=== PATIENT | male | born 1940 | race Caucasian/White ===

== ENCOUNTER 2017-10-19 14:34 | Outpatient (CLI) | payer MEDICARE | END 2017-10-19 14:35 | disposition home or self-care (01) | LOC: CTENTCT 14:34 | PROVIDERS: ATTEND Specialist | DX: J34.89 Other specified disorders of nose and nasal sinuses (principal) | CPT/HCPCS: 70486 ==

== ENCOUNTER 2021-09-12 09:42 | Outpatient (CLI) | payer MEDICARE ==
[2021-09-12 12:54] LABS: Hemoglobin 10.7 g/dL (13.5-17.5); Mean Corpuscular HGB CONC 30.5 g/dL (32.0-36.0); Mean Corpuscular Hemoglobin 26.6 pg (27.0-33.0); Mean Corpuscular Volume 87.1 fl (81.2-95.1); Mean Platelet Volume 11.7 fl (7.4-10.4); Platelet Count 340 10x3/uL (150-450); RBC Distribution Width 21.9 % (11.5-14.5); Red Blood Cell (RBC) Count 4.03 10x6/uL (4.32-5.72); White Blood Cell (WBC) Count 12.5 10x3/uL (3.5-10.5)
[2021-09-12 12:58] LABS: INR-International Normal Ratio 1.1; Prothrombin Time 11.7 sec (9.5-12.1)
[2021-09-12 13:14] LABS: ALT (SGPT) 16 U/L (8-55); AST (SGOT) 28 U/L (5-34); Albumin 4.5 g/dL (3.4-4.8); Alkaline Phosphatase 75 U/L (40-110); Anion Gap 13 mmol/L (10-20); BUN (Urea Nitrogen) 22 mg/dL (8.4-25.7); Bilirubin, Total 0.5 mg/dL (0.2-1.2); Calc. Creatinine Clearance 0 mL/min (70-130); Calcium 9.2 mg/dL (7.8-10.44); Carbon Dioxide 21 mmol/L (23-31); Chloride 110 mmol/L (98-107); Globulin 2.8 g/dL (2.4-3.5); Glucose 86 mg/dL (83-110); Potassium 5.1 mmol/L (3.5-5.1); Protein, Total 7.3 g/dL (5.8-8.1); Sodium 139 mmol/L (136-145)
[2021-09-13 00:16] LABS: SARS-CoV-2 PCR by NAA Not Detected (NotDetected)
== END 2021-09-12 09:43 | disposition home or self-care (01) ==
LOC: LABBT 09:42
PROVIDERS: ATTEND Internal Medicine Cardiovascular Disease
DX: Z01.812 Encounter for preprocedural laboratory examination (principal); Z20.822 Contact with and (suspected) exposure to COVID-19
CPT/HCPCS: 80053; 85027; 85610; 86850; 86900; 86901; 86920; U0003; U0005

== ENCOUNTER 2021-09-12 11:00 | Inpatient (IN) | payer MEDICARE ==
[2021-09-12 12:54] LABS: Hemoglobin 10.7 g/dL (13.5-17.5); Mean Corpuscular HGB CONC 30.5 g/dL (32.0-36.0); Mean Corpuscular Hemoglobin 26.6 pg (27.0-33.0); Mean Corpuscular Volume 87.1 fl (81.2-95.1); Mean Platelet Volume 11.7 fl (7.4-10.4); Platelet Count 340 10x3/uL (150-450); RBC Distribution Width 21.9 % (11.5-14.5); Red Blood Cell (RBC) Count 4.03 10x6/uL (4.32-5.72); White Blood Cell (WBC) Count 12.5 10x3/uL (3.5-10.5)
[2021-09-12 12:58] LABS: INR-International Normal Ratio 1.1; Prothrombin Time 11.7 sec (9.5-12.1)
[2021-09-12 13:14] LABS: ALT (SGPT) 16 U/L (8-55); AST (SGOT) 28 U/L (5-34); Albumin 4.5 g/dL (3.4-4.8); Alkaline Phosphatase 75 U/L (40-110); Anion Gap 13 mmol/L (10-20); BUN (Urea Nitrogen) 22 mg/dL (8.4-25.7); Bilirubin, Total 0.5 mg/dL (0.2-1.2); Calc. Creatinine Clearance 0 mL/min (70-130); Calcium 9.2 mg/dL (7.8-10.44); Carbon Dioxide 21 mmol/L (23-31); Chloride 110 mmol/L (98-107); Globulin 2.8 g/dL (2.4-3.5); Glucose 86 mg/dL (83-110); Potassium 5.1 mmol/L (3.5-5.1); Protein, Total 7.3 g/dL (5.8-8.1); Sodium 139 mmol/L (136-145)
[2021-09-13 00:16] LABS: SARS-CoV-2 PCR by NAA Not Detected (NotDetected)
[2021-09-13 14:49] VITALS: BMI 26.6
[2021-09-15] MEDS ORDERED: Heparin 10,000 UNITS/ 10 ML VIAL ONE (08:16)
[2021-09-15] MEDS ORDERED: Protamine Sulfate 50 MG/5 ML VIAL ONE (08:16)
[2021-09-15] MEDS ORDERED: Fentanyl 100 MCG/2 ML VIAL ONE (09:01)
[2021-09-15] MEDS ORDERED: PROPOFOL 200 MG/20 ML VIAL ONE (09:16)
[2021-09-15] MEDS ORDERED: Ketorolac Tromethamine 30 MG/ML VIAL ONE (09:16)
[2021-09-15] MEDS ORDERED: Ondansetron PF 4 MG/2 ML Vial ONE (09:16)
[2021-09-15] MEDS ORDERED: Lidocaine 1% PF 5 ML VIAL ONE (09:16)
[2021-09-15] MEDS ORDERED: Rocuronium Bromide 10 MG/ML (10ML VIAL) ONE (09:16)
[2021-09-15] MEDS ORDERED: Dexamethasone 20 MG/5 ML VIAL ONE (09:16)
[2021-09-15] MEDS ORDERED: Glycopyrrolate 0.2 MG/ML 5 ML SYRINGE ONE (09:16)
[2021-09-15] MEDS ORDERED: CEFAZOLIN 1 GM VIAL ONE (10:08)
== END 2021-09-15 15:12 | disposition home or self-care (01) | DRG 274 ==
LOC: SURG A 09-15 07:10
PROVIDERS: ADMIT Internal Medicine Cardiovascular Disease; ATTEND Internal Medicine Cardiovascular Disease
PROC: 02L73DK Occlusion of Left Atrial Appendage with Intraluminal Device, Percutaneous Approach (ICD-10-PCS; principal; 2021-09-15)
PROC: B24BZZ4 Ultrasonography of Heart with Aorta, Transesophageal (ICD-10-PCS; 2021-09-15)
DX: I48.0 Paroxysmal atrial fibrillation (principal); I50.22 Chronic systolic (congestive) heart failure; Z00.6 Encounter for examination for normal comparison and control in clinical research program; Z20.822 Contact with and (suspected) exposure to COVID-19; I25.5 Ischemic cardiomyopathy; E03.9 Hypothyroidism, unspecified; E78.5 Hyperlipidemia, unspecified; R29.6 Repeated falls; Z96.651 Presence of right artificial knee joint; I11.0 Hypertensive heart disease with heart failure; J45.909 Unspecified asthma, uncomplicated; I25.10 Atherosclerotic heart disease of native coronary artery without angina pectoris; Z87.19 Personal history of other diseases of the digestive system; Z95.810 Presence of automatic (implantable) cardiac defibrillator; Z95.1 Presence of aortocoronary bypass graft; Z90.81 Acquired absence of spleen; Z98.42 Cataract extraction status, left eye; Z98.41 Cataract extraction status, right eye; I25.2 Old myocardial infarction; Z82.49 Family history of ischemic heart disease and other diseases of the circulatory system; Z87.891 Personal history of nicotine dependence; Z79.899 Other long term (current) drug therapy; Z79.890 Hormone replacement therapy; Z79.01 Long term (current) use of anticoagulants; Z88.1 Allergy status to other antibiotic agents; Z88.5 Allergy status to narcotic agent; Z88.8 Allergy status to other drugs, medicaments and biological substances; Z79.82 Long term (current) use of aspirin; Z91.81 History of falling; Z95.5 Presence of coronary angioplasty implant and graft
CPT/HCPCS: 33340; 36430; 80053; 85027; 85347; 85610; 86850; 86900; 86901; 93312; 93662; C1759; C1776; J0690; J1100; J1644; J1885; J2405; J2704; J2720; J3010; U0003; U0005

== ENCOUNTER 2021-10-27 10:30 | Outpatient (CLI) | payer MEDICARE ==
[2021-10-27 13:06] LABS: Mean Corpuscular Hemoglobin 30.4 pg (27.0-33.0); Mean Corpuscular Volume 94.9 fl (81.2-95.1); Mean Platelet Volume 11.5 fl (7.4-10.4); Platelet Count 328 10x3/uL (150-450); Red Blood Cell (RBC) Count 4.28 10x6/uL (4.32-5.72); White Blood Cell (WBC) Count 10.3 10x3/uL (3.5-10.5)
[2021-10-27 13:09] LABS: INR-International Normal Ratio 1.1; Prothrombin Time 11.9 sec (9.5-12.1)
[2021-10-27 13:42] LABS: Anion Gap 15 mmol/L (10-20); BUN (Urea Nitrogen) 23 mg/dL (8.4-25.7); Calc. Creatinine Clearance 0 mL/min (70-130); Calcium 9.5 mg/dL (7.8-10.44); Carbon Dioxide 18 mmol/L (23-31); Chloride 112 mmol/L (98-107); Glucose 76 mg/dL (83-110); Potassium 4.7 mmol/L (3.5-5.1); Sodium 140 mmol/L (136-145)
[2021-10-28 09:12] LABS: SARS-CoV-2 PCR by NAA Not Detected (NotDetected)
== END 2021-10-27 10:31 | disposition home or self-care (01) ==
LOC: LABBT 10:30
PROVIDERS: ATTEND Internal Medicine Cardiovascular Disease
DX: Z01.812 Encounter for preprocedural laboratory examination (principal); I48.0 Paroxysmal atrial fibrillation; Z87.19 Personal history of other diseases of the digestive system; Z20.822 Contact with and (suspected) exposure to COVID-19
CPT/HCPCS: 80048; 85027; 85610; U0003; U0005

== ENCOUNTER 2021-11-01 06:49 | Day surgery (SDC) | payer MEDICARE ==
[2021-10-20 11:24] VITALS: BMI 26.6
[2021-11-01] MEDS ORDERED: PROPOFOL 200 MG/20 ML VIAL ONE (07:47)
== END 2021-11-01 09:25 | disposition home or self-care (01) ==
LOC: SDC 06:49
PROVIDERS: ATTEND Internal Medicine Cardiovascular Disease
PROC: B246ZZ4 Ultrasonography of Right and Left Heart, Transesophageal (ICD-10-PCS; principal; 2021-11-01)
DX: I48.0 Paroxysmal atrial fibrillation (principal); I34.0 Nonrheumatic mitral (valve) insufficiency; I11.0 Hypertensive heart disease with heart failure; I50.22 Chronic systolic (congestive) heart failure; I25.5 Ischemic cardiomyopathy; E03.9 Hypothyroidism, unspecified; E78.5 Hyperlipidemia, unspecified; I25.10 Atherosclerotic heart disease of native coronary artery without angina pectoris; Z87.891 Personal history of nicotine dependence; Z79.01 Long term (current) use of anticoagulants; Z79.899 Other long term (current) drug therapy; Z88.1 Allergy status to other antibiotic agents; Z88.5 Allergy status to narcotic agent; Z88.8 Allergy status to other drugs, medicaments and biological substances; Z95.1 Presence of aortocoronary bypass graft; Z90.49 Acquired absence of other specified parts of digestive tract; Z95.810 Presence of automatic (implantable) cardiac defibrillator; Z95.818 Presence of other cardiac implants and grafts
CPT/HCPCS: 93312; J2704

== ENCOUNTER 2023-09-20 07:06 | Day surgery (SDC) | payer MEDICARE ==
[2023-09-17 09:54] VITALS: BMI 23.3
[2023-09-20 07:57] LABS: #Basophils 0.2 thou/uL (0.0-0.2); #Eosinphils 0.9 thou/uL (0.0-0.7); #Monocytes 1.6 thou/uL (0.11-0.59); #Neutrophils 7.6 thou/uL (1.40-6.50); %Basophils 1.2 % (0.0-1.0); %Eosinophils 7.4 % (0.0-10.0); %Monocytes 12.3 % (0.0-10.0); %Neutrophils 59.8 % (42.0-75.0); Hematocrit 37.6 % (42.0-52.0); Hemoglobin 13.2 g/dL (14.0-18.0); Mean Corpuscular HGB CONC 35.1 g/dL (32.0-36.0); Mean Corpuscular Hemoglobin 36.9 pg (27.0-31.0); Mean Platelet Volume 10.1 fL (7.4-10.4); Platelet Count 293 10x3/uL (130-400); RBC Distribution Width 14.5 % (11.5-14.5); Red Blood Cell (RBC) Count 3.58 mill/uL (4.70-6.10); White Blood Cell (WBC) Count 12.7 10x3/uL (4.8-10.8)
[2023-09-20 08:18] LABS: Anion Gap 11 mmol/L (10-20); BUN (Urea Nitrogen) 19 mg/dL (8.4-25.7); Calc. Creatinine Clearance 42 mL/min (70-130); Calcium 9.2 mg/dL (7.8-10.44); Carbon Dioxide 19 mmol/L (23-31); Chloride 110 mmol/L (98-107); Estimated GFR 61; Glucose 90 mg/dL (83-110); Sodium 136 mmol/L (136-145)
[2023-09-20 08:27] LABS: INR-International Normal Ratio 1.1; PTT 34.3 sec (22.9-36.1); Prothrombin Time 14.7 sec (12.0-14.7)
[2023-09-20] MEDS ORDERED: PROPOFOL 200 MG/20 ML VIAL ONE (09:22)
== END 2023-09-20 10:22 | disposition home or self-care (01) ==
LOC: SDC 07:06
PROVIDERS: ATTEND Internal Medicine Cardiovascular Disease
PROC: B246ZZ4 Ultrasonography of Right and Left Heart, Transesophageal (ICD-10-PCS; principal; 2023-09-20)
DX: I48.0 Paroxysmal atrial fibrillation (principal); I11.0 Hypertensive heart disease with heart failure; I50.22 Chronic systolic (congestive) heart failure; I25.5 Ischemic cardiomyopathy; I25.810 Atherosclerosis of coronary artery bypass graft(s) without angina pectoris; E03.9 Hypothyroidism, unspecified; E78.5 Hyperlipidemia, unspecified; Z88.5 Allergy status to narcotic agent; Z88.8 Allergy status to other drugs, medicaments and biological substances; Z95.0 Presence of cardiac pacemaker; Z90.89 Acquired absence of other organs; Z96.659 Presence of unspecified artificial knee joint; Z87.891 Personal history of nicotine dependence; Z79.890 Hormone replacement therapy; Z79.899 Other long term (current) drug therapy
CPT/HCPCS: 36415; 80048; 85025; 85610; 85730; 93312; J2704

== ENCOUNTER 2024-03-30 20:55 | Inpatient (IN) | payer MEDICARE ==
[2024-03-30] MEDS ORDERED: Electrolyte Replacement Protocol 1 EACH IVPB SCH (22:23)
[2024-03-30] MEDS ORDERED: Acetaminophen 325 MG (10.15 ML) UDCUP PO PRN (22:23)
[2024-03-30] MEDS ORDERED: Ondansetron ODT 4 MG TAB PO PRN (22:24)
[2024-03-30] MEDS: Dextrose 5%-Lactated Ringers 1,000 ML IV SCH (22:42)
[2024-03-30] MEDS: Piperacillin/Tazobactam 4.5 GM in Sodium Chloride 0.9% 100 ML IVPB SCH (22:44)
[2024-03-30 22:53] LABS: Hematocrit 36.2 % (42.0-52.0); Hemoglobin 12.3 g/dL (14.0-18.0); Mean Corpuscular Hemoglobin 34.2 pg (27.0-31.0); Mean Corpuscular Volume 100.6 fL (78.0-98.0); Platelet Count 272 10x3/uL (130-400); RBC Distribution Width 14.5 % (11.5-14.5)
[2024-03-30 23:45] LABS: Band 11 % (5-11); Burr Cells MODERATE= 6-15 cells HPF (0-1); Eosinophils 1 % (0-10); Large Platelets 4.5 % (0-5); Lymphocytes 5 % (21-51); Monocytes 2 % (0-10); Neutrophil 81 % (42-75); Nucleated RBC (Manual Ct) 9 % (0); Platelet Adequacy Comment Platelets Normal; Smudge Cells 4.5 %
[2024-03-31 00:40] LABS: Lactic Acid 2.3 mmol/L (0.5-2.2)
[2024-03-31 01:50] LABS: Anion Gap 22 mmol/L (10-20); BUN (Urea Nitrogen) 42 mg/dL (8.4-25.7); Calc. Creatinine Clearance 33 mL/min (70-130); Calcium 8.9 mg/dL (7.8-10.44); Carbon Dioxide 10 mmol/L (23-31); Chloride 109 mmol/L (98-107); Estimated GFR 39; Glucose 63 mg/dL (83-110); Potassium 3.9 mmol/L (3.5-5.1); Sodium 137 mmol/L (136-145)
[2024-03-31] MEDS: Piperacillin/Tazobactam 4.5 GM in Sodium Chloride 0.9% 100 ML IVPB SCH (03:55)
[2024-03-31] MEDS ORDERED: Glucagon 1 MG/ML KIT IM PRN (04:54)
[2024-03-31] MEDS ORDERED: Dextrose 50% Abboject 50 ML SYRINGE SLOW IVP PRN (04:54)
[2024-03-31] MEDS ORDERED: Dextrose 5% in Water 1,000 ML IV PRN (04:54)
[2024-03-31 04:56] LABS: Phosphorus 3.4 mg/dL (2.3-4.7)
[2024-03-31] MEDS: Ondansetron PF 4 MG/2 ML Vial IVP PRN (08:21)
[2024-03-31] MEDS: Pantoprazole 40 MG VIAL IVP SCH (08:21)
[2024-03-31 08:33] LABS: Hemoglobin 13.7 g/dL (14.0-18.0); Mean Corpuscular HGB CONC 32.6 g/dL (32.0-36.0); Mean Corpuscular Hemoglobin 33.3 pg (27.0-31.0); Mean Corpuscular Volume 102.2 fL (78.0-98.0); Mean Platelet Volume 11.2 fL (7.4-10.4); Platelet Count 230 10x3/uL (130-400); RBC Distribution Width 14.6 % (11.5-14.5); Red Blood Cell (RBC) Count 4.11 mill/uL (4.70-6.10)
[2024-03-31] MEDS ORDERED: fentaNYL PF 100 MCG/2 ML SYRINGE IVP PRN (09:13)
[2024-03-31 09:58] LABS: Anisocytosis MODERATE=16-30 cells HPF (0-5); Band 15 % (5-11); Large Platelets 2.8 % (0-5); Lymphocytes 3 % (21-51); Monocytes 7 % (0-10); Neutrophil 73 % (42-75); Nucleated RBC (Manual Ct) 8 % (0); Platelet Adequacy Comment Platelets Normal; Poikilocytosis SLIGHT = 6-15 cells HPF (0-5); Polychromasia SLIGHT = 2-3 cells HPF (0-2); Reflex for Review?? YES; Schistocytes SLIGHT = 2-5 cells HPF (0-1); Target Cells SLIGHT = 2-5 cells HPF (0-1)
[2024-03-31] MEDS: fentaNYL 50 mcg/mL 1 mL Vial SLOW IVP PRN (10:10)
[2024-03-31] MEDS: Piperacillin/Tazobactam 3.375 GM in Sodium Chloride 0.9% 100 ML IVPB SCH (10:36)
[2024-03-31] MEDS: Acetaminophen 500 MG TAB PO SCH (13:44)
[2024-03-31] MEDS: Sucralfate 1 GM TAB PO SCH (13:44)
[2024-03-31] MEDS: Carvedilol 3.125 MG TAB PO SCH (16:06)
[2024-03-31] MEDS: Dronedarone HCl 400 MG TAB PO SCH (16:06)
[2024-03-31] MEDS: Escitalopram Oxalate 10 mg Tablet PO SCH (16:14)
[2024-03-31] MEDS: Heparin 5,000 UNITS/ML VIAL SC SCH (16:35)
[2024-03-31] MEDS: Furosemide 40 MG (4 mL) VIAL SLOW IVP SCH ×2 (16:35→19:54)
[2024-04-01 06:28] LABS: ALT (SGPT) 27 U/L (8-55); AST (SGOT) 31 U/L (5-34); Albumin 2.1 g/dL (3.4-4.8); Alkaline Phosphatase 45 U/L (40-110); Anion Gap 18 mmol/L (10-20); BUN (Urea Nitrogen) 44 mg/dL (8.4-25.7); Bilirubin, Total 1.4 mg/dL (0.2-1.2); Calc. Creatinine Clearance 35 mL/min (70-130); Calcium 8.8 mg/dL (7.8-10.44); Carbon Dioxide 21 mmol/L (23-31); Chloride 107 mmol/L (98-107); Estimated GFR 46; Globulin 3.3 g/dL (2.4-3.5); Glucose 113 mg/dL (83-110); Potassium 2.5 mmol/L (3.5-5.1); Protein, Total 5.4 g/dL (5.8-8.1); Sodium 143 mmol/L (136-145)
[2024-04-01 06:33] LABS: Band 25 % (5-11); Burr Cells MODERATE= 6-15 cells HPF (0-1); Large Platelets 2.6 % (0-5); Lymphocytes 2 % (21-51); Monocytes 7 % (0-10); Neutrophil 67 % (42-75); Nucleated RBC (Manual Ct) 18 % (0); Platelet Adequacy Comment Platelets Normal; Poikilocytosis MODERATE=16-30 cells HPF (0-5); Polychromasia SLIGHT = 2-3 cells HPF (0-2)
[2024-04-01] MEDS: Potassium Chloride 20 MEQ in Premix 1 BAG IVPB SCH (06:46)
[2024-04-01 06:47] LABS: Hemoglobin 12.2 g/dL (14.0-18.0); Mean Corpuscular HGB CONC 35.9 g/dL (32.0-36.0); Mean Corpuscular Hemoglobin 34.2 pg (27.0-31.0); Mean Corpuscular Volume 95.2 fL (78.0-98.0); Mean Platelet Volume 11.7 fL (7.4-10.4); Platelet Count 265 10x3/uL (130-400); RBC Distribution Width 14.2 % (11.5-14.5); Red Blood Cell (RBC) Count 3.57 mill/uL (4.70-6.10)
[2024-04-01] MEDS ORDERED: Lidocaine 1% PF 5 ML VIAL ONE (09:54)
[2024-04-01] MEDS ORDERED: Sodium Bicarbonate 2.5 MEQ/5 ML SDV ONE (10:21)
[2024-04-01] MEDS ORDERED: MD-Gastroview 120 ML BOT ONE (11:11)
[2024-04-01] MEDS ORDERED: Etomidate 40 MG (20 mL) VIAL ONE (11:48)
[2024-04-01] MEDS ORDERED: fentaNYL PF 100 MCG/2 ML SYRINGE ONE (11:53)
[2024-04-01] MEDS ORDERED: GASTROGRAFIN 30 ML BOT ONE (12:30)
[2024-04-01] MEDS: Pantoprazole 40 MG VIAL IVP SCH (13:24)
[2024-04-01] MEDS ORDERED: Ondansetron PF 4 MG/2 ML Vial ONE (13:34)
[2024-04-01] MEDS ORDERED: PHENYLEPHRINE-NS 100 MCG/ML 10 ML SYRINGE ONE (13:34)
[2024-04-01] MEDS ORDERED: Rocuronium Bromide 10 MG/ML (10ML VIAL) ONE (13:34)
[2024-04-01] MEDS ORDERED: Dexamethasone 20 MG/5 ML VIAL ONE (13:34)
[2024-04-01] MEDS ORDERED: SUCCINYLCHOLINE/SOD CL,ISO/PF 200 MG/10 ML SYRINGE FS ONE (13:34)
[2024-04-01] MEDS ORDERED: Vasopressin 20 UNITS/ML VIAL ONE (13:53)
[2024-04-01] MEDS: Furosemide 40 MG (4 mL) VIAL SLOW IVP SCH (14:50)
[2024-04-01 16:14] LABS: Actual Bicarbonate (HCO3a) 18.6 mEq/L (22-28); Base Excess (BEa) -6.5 mEq/L (-2.0 to +3.0); Calcium, Ionized (arterial) 1.14 mmol/L (1.12-1.30); Carboxyhemoglobin (COHb) 0.8 gm% (0.0-3.0); Hematocrit-ABG 39 % (42.0-52.0); Hemoglobin (Hb) 13.3 g/dL (14.0-18.0); O2 Tension (PaO2), arterial 145.3 mmHg (> 60.0); Potassium - ABG Lab 2.67 mmol/L (3.70-5.30); pH, Arterial 7.332 (7.35-7.45)
[2024-04-01 16:15] LABS: Puncture Site Arterial Line
[2024-04-01] MEDS: Magnesium 2 GM/50 ML(in water) 2 GM in Premix 1 BAG IVPB SCH (16:53)
[2024-04-01] MEDS ORDERED: Fentanyl BOLUS 250 ML IVPB PRN (17:00)
[2024-04-01] MEDS ORDERED: Morphine 2 MG/ML VIAL SLOW IVP PRN (17:00)
[2024-04-01] MEDS ORDERED: Propofol 1,000 MG/100 ML VIAL IV PRN (17:00)
[2024-04-01] MEDS ORDERED: DISCONTINUE PREVIOUS NARCOTIC PAIN MEDICATIONS AND BENZODIAZEPINES FS SCH (17:00)
[2024-04-01] MEDS ORDERED: Propofol BOLUS 1,000 MG/100 ML VIAL IV PRN (17:00)
[2024-04-01] MEDS ORDERED: NOREPINEPHRINE 8 MG/250 ML-D5W 250 ML IVPB SCH (17:45)
[2024-04-01 23:44] LABS: Hematocrit 37.5 % (42.0-52.0); Hemoglobin 13.2 g/dL (14.0-18.0); Mean Corpuscular HGB CONC 35.2 g/dL (32.0-36.0); Mean Corpuscular Hemoglobin 34.1 pg (27.0-31.0); Mean Corpuscular Volume 96.9 fL (78.0-98.0); Mean Platelet Volume 11.5 fL (7.4-10.4); Platelet Count 268 10x3/uL (130-400); RBC Distribution Width 14.3 % (11.5-14.5); Red Blood Cell (RBC) Count 3.87 mill/uL (4.70-6.10)
[2024-04-02 00:09] LABS: Band 15 % (5-11); Burr Cells SLIGHT = 2-5 cells HPF (0-1); Large Platelets 2.8 % (0-5); Lymphocytes 2 % (21-51); Metamyelocyte 1 % (0-0); Monocytes 3 % (0-10); Nucleated RBC (Manual Ct) 9 % (0); Platelet Adequacy Comment Platelets Normal; Polychromasia SLIGHT = 2-3 cells HPF (0-2); Smudge Cells 3.8 %; Target Cells SLIGHT = 2-5 cells HPF (0-1)
[2024-04-02 00:10] LABS: Lactic Acid 2.2 mmol/L (0.5-2.2)
[2024-04-02 00:11] LABS: Neutrophil 79 % (42-75)
[2024-04-02 00:13] LABS: ALT (SGPT) 27 U/L (8-55); AST (SGOT) 34 U/L (5-34); Albumin 1.9 g/dL (3.4-4.8); Alkaline Phosphatase 49 U/L (40-110); Anion Gap 17 mmol/L (10-20); BUN (Urea Nitrogen) 51 mg/dL (8.4-25.7); Bilirubin, Total 1.2 mg/dL (0.2-1.2); Calc. Creatinine Clearance 35 mL/min (70-130); Calcium 8.6 mg/dL (7.8-10.44); Carbon Dioxide 15 mmol/L (23-31); Chloride 116 mmol/L (98-107); Estimated GFR 46; Globulin 3.4 g/dL (2.4-3.5); Glucose 162 mg/dL (83-110); Magnesium 2.7 mg/dL (1.6-2.6); Potassium 3.1 mmol/L (3.5-5.1); Protein, Total 5.3 g/dL (5.8-8.1); Sodium 145 mmol/L (136-145)
[2024-04-02 01:15] LABS: Actual Bicarbonate (HCO3a) 18.4 mEq/L (22-28); Base Excess (BEa) -5.7 mEq/L (-2.0 to +3.0); CO2 Tension 31.9 mmHg (35.0-45.0); Calcium, Ionized (arterial) 1.19 mmol/L (1.12-1.30); Carboxyhemoglobin (COHb) 0.6 gm% (0.0-3.0); Hematocrit-ABG 41 % (42.0-52.0); Hemoglobin (Hb) 13.8 g/dL (14.0-18.0); O2 Tension (PaO2), arterial 106.9 mmHg (> 60.0); Potassium - ABG Lab 3.12 mmol/L (3.70-5.30); pH, Arterial 7.378 (7.35-7.45)
[2024-04-02 01:16] LABS: Puncture Site Arterial Line
[2024-04-02 01:21] LABS: ALV-art Gradient 281.025 mmHg (0-20)
[2024-04-02 03:22] LABS: Hematocrit 36.1 % (42.0-52.0); Hemoglobin 12.7 g/dL (14.0-18.0); Mean Corpuscular HGB CONC 35.2 g/dL (32.0-36.0); Mean Corpuscular Volume 96.8 fL (78.0-98.0); Mean Platelet Volume 11.6 fL (7.4-10.4); Platelet Count 253 10x3/uL (130-400); RBC Distribution Width 14.4 % (11.5-14.5); Red Blood Cell (RBC) Count 3.73 mill/uL (4.70-6.10)
[2024-04-02] MEDS: Potassium Chloride 20 MEQ in Premix 1 BAG IVPB SCH ×2 (03:26→12:13)
[2024-04-02] MEDS: Albumin 25% 25 GM (100 mL) BOT IVPB SCH (03:39)
[2024-04-02] MEDS: Sodium Bicarbonate 75 MEQ in Sodium Chloride 0.45% 1,000 ML IV SCH (03:39)
[2024-04-02 03:47] LABS: Band 8 % (5-11); Burr Cells MODERATE= 6-15 cells HPF (0-1); Lymphocytes 1 % (21-51); Monocytes 4 % (0-10); Neutrophil 87 % (42-75); Nucleated RBC (Manual Ct) 12 % (0); Platelet Adequacy Comment Platelets Normal; Target Cells SLIGHT = 2-5 cells HPF (0-1)
[2024-04-02] MEDS: Naloxone HCl 0.4 mg/ml Vial IV SCH (05:18)
[2024-04-02 05:20] LABS: Anion Gap 19 mmol/L (10-20); BUN (Urea Nitrogen) 55 mg/dL (8.4-25.7); Calc. Creatinine Clearance 34 mL/min (70-130); Calcium 8.7 mg/dL (7.8-10.44); Carbon Dioxide 14 mmol/L (23-31); Chloride 116 mmol/L (98-107); Estimated GFR 44; Glucose 161 mg/dL (83-110); Potassium 3.1 mmol/L (3.5-5.1); Sodium 146 mmol/L (136-145)
[2024-04-02 07:05] LABS: Actual Bicarbonate (HCO3a) 19.2 mEq/L (22-28); Base Excess (BEa) -3.7 mEq/L (-2.0 to +3.0); CO2 Tension 28.5 mmHg (35.0-45.0); Calcium, Ionized (arterial) 1.15 mmol/L (1.12-1.30); Hematocrit-ABG 36 % (42.0-52.0); Hemoglobin (Hb) 12.2 g/dL (14.0-18.0); O2 Tension (PaO2), arterial 95.5 mmHg (> 60.0); Potassium - ABG Lab 3.63 mmol/L (3.70-5.30); pH, Arterial 7.446 (7.35-7.45)
[2024-04-02 07:06] LABS: ALV-art Gradient 154.075 mmHg (0-20); Puncture Site Arterial Line
[2024-04-02 07:37] LABS: INR-International Normal Ratio 1.5; Prothrombin Time 17.7 sec (12.0-14.7)
[2024-04-02 07:52] LABS: Cardiac Risk 5.8 (Less than 4.5); Cholesterol 52 mg/dl (< 200 Desired); HDL Cholesterol 9 mg/dL (>60 Neg Risk); LDL Cholesterol, Calculated 28 mg/dL; Magnesium 2.8 mg/dL (1.6-2.6); Phosphorus 2.8 mg/dL (2.3-4.7); Triglycerides 73 mg/dL (Less than 150)
[2024-04-02] MEDS ORDERED: LYTE IN TPN IVPB PRN (08:25)
[2024-04-02] MEDS: Fentanyl CADD 100 ML IV SCH (09:12)
[2024-04-02] MEDS: Sodium Chloride 0.45% 1,000 ML IV SCH (09:12)
[2024-04-02] MEDS: Furosemide 40 MG (4 mL) VIAL SLOW IVP SCH (10:01)
[2024-04-02] MEDS ORDERED: Sodium Bicarbonate 2.5 MEQ/5 ML SDV ONE (10:20)
[2024-04-02] MEDS ORDERED: Lidocaine 1% PF 5 ML VIAL ONE (10:21)
[2024-04-02 10:52] LABS: Potassium 3.1 mmol/L (3.5-5.1)
[2024-04-02] MEDS: Meropenem 1 GM in Sodium Chloride 0.9% 100 ML IVPB SCH ×3 (12:13→20:09)
[2024-04-02] MEDS: Fluconazole In NaCl,Iso-Osm 100 MG in Admixture Fee 1 EACH IVPB SCH (12:51)
[2024-04-02] MEDS: MULTIVITAMINS IV SCH (13:28)
[2024-04-02] MEDS: POTASSIUM PHOSPHATE IV SCH (13:28)
[2024-04-02] MEDS: [UNRECOGNIZED DRUG - OTHER] IV SCH (13:28)
[2024-04-02] MEDS: POTASSIUM ACETATE IV SCH (13:28)
[2024-04-02] MEDS: Lorazepam 2 MG/ML VIAL SLOW IVP PRN (15:50)
[2024-04-02] MEDS: Digoxin 0.5 MG/2 ML AMP SLOW IVP SCH ×2 (16:05→18:37)
[2024-04-02] MEDS ORDERED: HumaLOG 300 UNITS/3 ML VIAL SC PRN (16:39)
[2024-04-02] MEDS ORDERED: Glucagon 1 MG/ML KIT IM PRN (16:39)
[2024-04-02] MEDS ORDERED: Dextrose 5% in Water 1,000 ML IV PRN (16:39)
[2024-04-02] MEDS ORDERED: Dextrose 50% Abboject 50 ML SYRINGE SLOW IVP PRN (16:39)
[2024-04-02 16:51] LABS: Potassium 3.4 mmol/L (3.5-5.1)
[2024-04-02] MEDS ORDERED: Insulin Lispro 100 UNIT/ML 10 ML VIAL SC PRN (16:51)
[2024-04-02] MEDS: Amiodarone 450 MG in Dextrose 5% in Water 250 ML IVPB SCH (16:59)
[2024-04-02] MEDS: Insulin Lispro 100 UNIT/ML 10 ML VIAL SC PRN (17:02)
[2024-04-02] MEDS: Potassium Chloride 40 MEQ in Premix 1 BAG IVPB SCH (18:04)
[2024-04-02] MEDS: Enoxaparin 60 MG (0.6 mL) SYRINGE SC SCH (20:10)
[2024-04-02 22:53] LABS: Potassium 3.8 mmol/L (3.5-5.1)
[2024-04-03 04:02] LABS: Hematocrit 26.7 % (42.0-52.0); Hemoglobin 9.5 g/dL (14.0-18.0); Mean Corpuscular HGB CONC 35.6 g/dL (32.0-36.0); Mean Corpuscular Hemoglobin 33.6 pg (27.0-31.0); Mean Corpuscular Volume 94.3 fL (78.0-98.0); Platelet Count 180 10x3/uL (130-400); RBC Distribution Width 14.5 % (11.5-14.5); Red Blood Cell (RBC) Count 2.83 mill/uL (4.70-6.10)
[2024-04-03 04:25] LABS: Anion Gap 11 mmol/L (10-20); BUN (Urea Nitrogen) 55 mg/dL (8.4-25.7); Calc. Creatinine Clearance 45 mL/min (70-130); Calcium 7.9 mg/dL (7.8-10.44); Carbon Dioxide 18 mmol/L (23-31); Chloride 120 mmol/L (98-107); Estimated GFR 62; Glucose 182 mg/dL (83-110); Magnesium 2.4 mg/dL (1.6-2.6); Phosphorus 1.5 mg/dL (2.3-4.7); Potassium 3.7 mmol/L (3.5-5.1); Sodium 145 mmol/L (136-145)
[2024-04-03 05:07] LABS: Anisocytosis MODERATE=16-30 cells HPF (0-5); Band 4 % (5-11); Burr Cells MODERATE= 6-15 cells HPF (0-1); Lymphocytes 4 % (21-51); Macrocytosis MODERATE=16-30 cells HPF (0-5); Monocytes 4 % (0-10); Neutrophil 88 % (42-75); Nucleated RBC (Manual Ct) 8 % (0); Platelet Adequacy Comment Platelets Normal; Poikilocytosis MODERATE=16-30 cells HPF (0-5); Polychromasia SLIGHT = 2-3 cells HPF (0-2); Target Cells SLIGHT = 2-5 cells HPF (0-1)
[2024-04-03] MEDS: Potassium Phosphate 22 MMOL in Sodium Chloride 0.9% 250 ML 250 ML IVPB SCH (05:11)
[2024-04-03 11:42] LABS: Hematocrit 28.4 % (42.0-52.0)
[2024-04-04 04:46] LABS: Hemoglobin 10.1 g/dL (14.0-18.0); Mean Corpuscular HGB CONC 33.7 g/dL (32.0-36.0); Mean Corpuscular Hemoglobin 33.9 pg (27.0-31.0); Mean Corpuscular Volume 100.7 fL (78.0-98.0); Mean Platelet Volume 12.1 fL (7.4-10.4); Platelet Count 164 10x3/uL (130-400); RBC Distribution Width 14.9 % (11.5-14.5); Red Blood Cell (RBC) Count 2.98 mill/uL (4.70-6.10)
[2024-04-04 04:54] LABS: Anion Gap 10 mmol/L (10-20); BUN (Urea Nitrogen) 45 mg/dL (8.4-25.7); Calc. Creatinine Clearance 68 mL/min (70-130); Calcium 7.8 mg/dL (7.8-10.44); Carbon Dioxide 17 mmol/L (23-31); Chloride 117 mmol/L (98-107); Estimated GFR 88; Glucose 171 mg/dL (83-110); Sodium 140 mmol/L (136-145)
[2024-04-04 05:22] LABS: Anisocytosis SLIGHT = 6-15 cells HPF (0-5); Band 2 % (5-11); Hypochromia SLIGHT = 6-15 cells HPF (0-5); Lymphocytes 5 % (21-51); Macrocytosis SLIGHT = 6-15 cells HPF (0-5); Monocytes 6 % (0-10); Neutrophil 87 % (42-75); Nucleated RBC (Manual Ct) 5 % (0); Platelet Adequacy Comment Platelets Normal; Poikilocytosis MODERATE=16-30 cells HPF (0-5); Polychromasia SLIGHT = 2-3 cells HPF (0-2)
[2024-04-04 06:58] LABS: Magnesium 2.2 mg/dL (1.6-2.6); Phosphorus 2.1 mg/dL (2.3-4.7)
[2024-04-04] MEDS: Meropenem 1 GM in Sodium Chloride 0.9% 100 ML IVPB SCH (07:07)
[2024-04-04] MEDS: Sodium Phosphate 30 MMOL in Sodium Chloride 0.9% 250 ML 250 ML IVPB SCH (07:48)
[2024-04-04] MEDS: fentaNYL 25 mcg Patch TD SCH (09:44)
[2024-04-04] MEDS: DC Sedation Protocol FS ONE (09:56)
[2024-04-04] MEDS: fentaNYL 50 mcg/mL 1 mL Vial SLOW IVP SCH ×3 (10:53→21:08)
[2024-04-05 04:27] LABS: Hematocrit 30.3 % (42.0-52.0); Hemoglobin 10.5 g/dL (14.0-18.0); Mean Corpuscular HGB CONC 34.7 g/dL (32.0-36.0); Mean Corpuscular Volume 98.1 fL (78.0-98.0); Mean Platelet Volume 12.5 fL (7.4-10.4); Platelet Count 165 10x3/uL (130-400); RBC Distribution Width 14.9 % (11.5-14.5); Red Blood Cell (RBC) Count 3.09 mill/uL (4.70-6.10)
[2024-04-05 04:54] LABS: Anisocytosis SLIGHT = 6-15 cells HPF (0-5); Band 7 % (5-11); Hypochromia SLIGHT = 6-15 cells HPF (0-5); Lymphocytes 4 % (21-51); Monocytes 2 % (0-10); Neutrophil 87 % (42-75); Nucleated RBC (Manual Ct) 4 % (0); Platelet Adequacy Comment Platelets Normal; Polychromasia SLIGHT = 2-3 cells HPF (0-2)
[2024-04-05 05:04] LABS: Anion Gap 12 mmol/L (10-20); BUN (Urea Nitrogen) 37 mg/dL (8.4-25.7); Calc. Creatinine Clearance 72 mL/min (70-130); Calcium 7.5 mg/dL (7.8-10.44); Carbon Dioxide 16 mmol/L (23-31); Chloride 117 mmol/L (98-107); Estimated GFR 90; Glucose 142 mg/dL (83-110); Magnesium 1.9 mg/dL (1.6-2.6); Potassium 3.8 mmol/L (3.5-5.1); Sodium 141 mmol/L (136-145)
[2024-04-05 05:09] LABS: Phosphorus 2.7 mg/dL (2.3-4.7)
[2024-04-05] MEDS: Magnesium 2 GM/50 ML(in water) 2 GM in Premix 1 BAG IVPB SCH (09:40)
[2024-04-05] MEDS: Enoxaparin 40 MG (0.4 mL) SYRINGE SC SCH (09:40)
[2024-04-05] MEDS: Fluconazole In NaCl,Iso-Osm 200 MG in Admixture Fee 1 EACH IVPB SCH (11:35)
[2024-04-06 04:13] LABS: Hematocrit 26.6 % (42.0-52.0); Hemoglobin 9.1 g/dL (14.0-18.0); Mean Corpuscular HGB CONC 34.2 g/dL (32.0-36.0); Mean Corpuscular Hemoglobin 34.2 pg (27.0-31.0); Mean Platelet Volume 12.7 fL (7.4-10.4); Platelet Count 167 10x3/uL (130-400); RBC Distribution Width 14.8 % (11.5-14.5); Red Blood Cell (RBC) Count 2.66 mill/uL (4.70-6.10)
[2024-04-06 04:26] LABS: Anion Gap 11 mmol/L (10-20); BUN (Urea Nitrogen) 35 mg/dL (8.4-25.7); Calc. Creatinine Clearance 78 mL/min (70-130); Calcium 7.6 mg/dL (7.8-10.44); Carbon Dioxide 16 mmol/L (23-31); Chloride 115 mmol/L (98-107); Estimated GFR 92; Glucose 171 mg/dL (83-110); Potassium 3.5 mmol/L (3.5-5.1); Sodium 138 mmol/L (136-145)
[2024-04-06 04:30] LABS: Magnesium 2.2 mg/dL (1.6-2.6); Phosphorus 2.1 mg/dL (2.3-4.7)
[2024-04-06 04:41] LABS: Band 7 % (5-11); Hypochromia SLIGHT = 6-15 cells HPF (0-5); Lymphocytes 2 % (21-51); Macrocytosis SLIGHT = 6-15 cells HPF (0-5); Monocytes 4 % (0-10); Neutrophil 87 % (42-75); Nucleated RBC (Manual Ct) 2 % (0); Platelet Adequacy Comment Platelets Normal; Poikilocytosis SLIGHT = 6-15 cells HPF (0-5); Polychromasia SLIGHT = 2-3 cells HPF (0-2); Target Cells SLIGHT = 2-5 cells HPF (0-1)
[2024-04-06] MEDS: Potassium Phosphate 30 MMOL in Sodium Chloride 0.9% 250 ML 250 ML IVPB SCH (11:06)
[2024-04-06] MEDS ORDERED: Vasopressin 20 UNITS/ML VIAL ONE (13:25)
[2024-04-06] MEDS ORDERED: Etomidate 40 MG (20 mL) VIAL ONE (13:25)
[2024-04-06] MEDS ORDERED: Phenylephrine 40 MG/NS 250 ML 250 ML ONE (13:25)
[2024-04-06] MEDS ORDERED: Sodium Bicarb 50 MEQ/50 ML Abboject 8.4% SYRINGE ONE (13:32)
[2024-04-06] MEDS ORDERED: Albumin 5% 500 ML ONE (13:32)
[2024-04-06] MEDS ORDERED: Ketamine In 0.9 % NaCl 50 MG/5 ML SYRINGE ONE (15:16)
[2024-04-06] MEDS ORDERED: Midazolam HCl 2 mg/2 ml Vial ONE (16:33)
[2024-04-06] MEDS ORDERED: ePHEDrine Sulfate 50 MG/10 ML VIAL ONE (16:38)
[2024-04-06 19:21] LABS: Actual Bicarbonate (HCO3a) 18.2 mEq/L (22-28); Base Excess (BEa) -8.3 mEq/L (-2.0 to +3.0); CO2 Tension 41.5 mmHg (35.0-45.0); Calcium, Ionized (arterial) 1.15 mmol/L (1.12-1.30); Carboxyhemoglobin (COHb) 0.5 gm% (0.0-3.0); Hematocrit-ABG 29 % (42.0-52.0); Hemoglobin (Hb) 9.8 g/dL (14.0-18.0); O2 Tension (PaO2), arterial 106.5 mmHg (> 60.0); Potassium - ABG Lab 3.75 mmol/L (3.70-5.30); pH, Arterial 7.261 (7.35-7.45)
[2024-04-06 19:22] LABS: ALV-art Gradient 198.125 mmHg (0-20); Puncture Site RRA
[2024-04-06] MEDS ORDERED: Propofol BOLUS 1,000 MG/100 ML VIAL IV PRN (19:45)
[2024-04-06] MEDS ORDERED: DISCONTINUE PREVIOUS NARCOTIC PAIN MEDICATIONS AND BENZODIAZEPINES FS SCH (19:45)
[2024-04-06] MEDS ORDERED: Fentanyl BOLUS 250 ML IVPB PRN (19:45)
[2024-04-06] MEDS: Propofol 1,000 MG/100 ML VIAL IV PRN (19:56)
[2024-04-06] MEDS: Fentanyl CADD 100 ML IV SCH (19:56)
[2024-04-07 03:47] LABS: Hematocrit 28.3 % (42.0-52.0); Hemoglobin 9.7 g/dL (14.0-18.0); Mean Corpuscular HGB CONC 34.3 g/dL (32.0-36.0); Mean Corpuscular Hemoglobin 34.9 pg (27.0-31.0); Mean Corpuscular Volume 101.8 fL (78.0-98.0); Mean Platelet Volume 12.8 fL (7.4-10.4); Platelet Count 204 10x3/uL (130-400); RBC Distribution Width 15.3 % (11.5-14.5); Red Blood Cell (RBC) Count 2.78 mill/uL (4.70-6.10)
[2024-04-07 03:58] LABS: Anion Gap 12 mmol/L (10-20); BUN (Urea Nitrogen) 35 mg/dL (8.4-25.7); Calc. Creatinine Clearance 67 mL/min (70-130); Calcium 7.3 mg/dL (7.8-10.44); Carbon Dioxide 17 mmol/L (23-31); Chloride 115 mmol/L (98-107); Estimated GFR 88; Glucose 165 mg/dL (83-110); Potassium 4.6 mmol/L (3.5-5.1); Sodium 139 mmol/L (136-145)
[2024-04-07 04:01] LABS: Phosphorus 4.3 mg/dL (2.3-4.7)
[2024-04-07 04:11] LABS: Band 6 % (5-11); Hypochromia SLIGHT = 6-15 cells HPF (0-5); Large Platelets 3.9 % (0-5); Lymphocytes 1 % (21-51); Macrocytosis SLIGHT = 6-15 cells HPF (0-5); Monocytes 7 % (0-10); Neutrophil 86 % (42-75); Nucleated RBC (Manual Ct) 2 % (0); Platelet Adequacy Comment Platelets Normal; Poikilocytosis SLIGHT = 6-15 cells HPF (0-5); Polychromasia SLIGHT = 2-3 cells HPF (0-2); Target Cells MODERATE= 6-15 cells HPF (0-1)
[2024-04-07 09:42] LABS: Actual Bicarbonate (HCO3a) 17.8 mEq/L (22-28); CO2 Tension 29.6 mmHg (35.0-45.0); Hematocrit-ABG 30 % (42.0-52.0); Hemoglobin (Hb) 10.3 g/dL (14.0-18.0); O2 Tension (PaO2), arterial 105.6 mmHg (> 60.0); pH, Arterial 7.397 (7.35-7.45)
[2024-04-07 09:46] LABS: Puncture Site RRA
[2024-04-07] MEDS: Furosemide 40 MG (4 mL) VIAL SLOW IVP SCH (10:02)
[2024-04-07] MEDS: Vancomycin (BATCH) 1.75 GM in Premix 1 BAG IVPB SCH (10:25)
[2024-04-07] MEDS: Amiodarone 450 MG in Dextrose 5% in Water 250 ML IVPB SCH (10:26)
[2024-04-07] MEDS: Vancomycin 1 GM in Premix 1 BAG IVPB SCH (12:07)
[2024-04-07] MEDS: Meropenem 1 GM VIAL ONE (14:13)
[2024-04-07] MEDS: Vancomycin (BATCH) 1.5 GM in Premix 1 BAG IVPB SCH (20:21)
[2024-04-08 05:25] LABS: Vancomycin, Random 22.7 ug/mL (See Comment)
[2024-04-08 05:51] LABS: Anion Gap 9 mmol/L (10-20); BUN (Urea Nitrogen) 38 mg/dL (8.4-25.7); Calc. Creatinine Clearance 52 mL/min (70-130); Calcium 6.6 mg/dL (7.8-10.44); Carbon Dioxide 17 mmol/L (23-31); Chloride 108 mmol/L (98-107); Estimated GFR 70; Magnesium 1.7 mg/dL (1.6-2.6); Potassium 5.4 mmol/L (3.5-5.1); Sodium 129 mmol/L (136-145)
[2024-04-08 06:06] LABS: Glucose 973 mg/dL (83-110)
[2024-04-08] MEDS ORDERED: VANCOMYCIN IVPB PRN (06:38)
[2024-04-08] MEDS: Magnesium 2 GM/50 ML(in water) 2 GM in Premix 1 BAG IVPB SCH (07:54)
[2024-04-08 08:56] LABS: ALT (SGPT) 77 U/L (8-55); AST (SGOT) 129 U/L (5-34); Albumin 1.2 g/dL (3.4-4.8); Alkaline Phosphatase 78 U/L (40-110); Anion Gap 10 mmol/L (10-20); BUN (Urea Nitrogen) 40 mg/dL (8.4-25.7); Bilirubin, Total 2.2 mg/dL (0.2-1.2); Calc. Creatinine Clearance 70 mL/min (70-130); Calcium 7.2 mg/dL (7.8-10.44); Carbon Dioxide 20 mmol/L (23-31); Chloride 116 mmol/L (98-107); Estimated GFR 88; Globulin 2.9 g/dL (2.4-3.5); Glucose 123 mg/dL (83-110); Magnesium 1.8 mg/dL (1.6-2.6); Phosphorus 3.5 mg/dL (2.3-4.7); Protein, Total 4.1 g/dL (5.8-8.1); Sodium 142 mmol/L (136-145)
[2024-04-08] MEDS: Methylene Blue 50 MG/10 ML AMPUL FS SCH (10:46)
[2024-04-08] MEDS: Fat Emulsion 250 ML, Multivitamins, Adult 10 ML, TRACE ELEMENT CONCENTRATE 1 ML in D15W... IV SCH (13:51)
[2024-04-08] MEDS: Sodium Chloride 0.9% 100 ML ONE (13:52)
[2024-04-08] MEDS: Meropenem 1 GM VIAL ONE (13:52)
[2024-04-09 04:21] LABS: #Basophils 0.08 10x3/uL (0.0-0.2); %Basophils 0.2 % (0.0-1.0); %Eosinophils 1.5 % (0.0-10.0); %Monocytes 9.5 % (0.0-10.0); %Neutrophils 82.9 % (42.0-75.0); Hematocrit 20.1 % (42.0-52.0); Mean Corpuscular HGB CONC 34.8 g/dL (32.0-36.0); Mean Corpuscular Hemoglobin 33.5 pg (27.0-31.0); Mean Corpuscular Volume 96.2 fL (78.0-98.0); Mean Platelet Volume 12.8 fL (7.4-10.4); Platelet Count 215 10x3/uL (130-400); RBC Distribution Width 15.7 % (11.5-14.5); Red Blood Cell (RBC) Count 2.09 mill/uL (4.70-6.10)
[2024-04-09 04:50] LABS: Anion Gap 9 mmol/L (10-20); BUN (Urea Nitrogen) 33 mg/dL (8.4-25.7); Calc. Creatinine Clearance 85 mL/min (70-130); Calcium 7.3 mg/dL (7.8-10.44); Carbon Dioxide 19 mmol/L (23-31); Chloride 117 mmol/L (98-107); Estimated GFR 93; Glucose 116 mg/dL (83-110); Magnesium 2.1 mg/dL (1.6-2.6); Potassium 3.8 mmol/L (3.5-5.1); Sodium 141 mmol/L (136-145); Vancomycin, Random 20.6 ug/mL (See Comment)
[2024-04-09 05:43] LABS: Band 1 % (5-11); Hypochromia SLIGHT = 6-15 cells HPF (0-5); Large Platelets 6.8 % (0-5); Lymphocytes 1 % (21-51); Monocytes 8 % (0-10); Neutrophil 90 % (42-75); Nucleated RBC (Manual Ct) 3 % (0); Platelet Adequacy Comment Platelets Normal; Polychromasia SLIGHT = 2-3 cells HPF (0-2)
[2024-04-09 09:16] LABS: Phosphorus 3.1 mg/dL (2.3-4.7)
[2024-04-09] MEDS: Furosemide 20 MG (2 mL) VIAL SLOW IVP SCH ×2 (09:19→13:58)
[2024-04-09] MEDS: Vancomycin 1 GM in Sodium Chloride 0.9% 250 ML 250 ML IVPB SCH (10:43)
[2024-04-09 14:54] LABS: Hematocrit 30.1 % (42.0-52.0)
[2024-04-09] MEDS: Acetaminophen 650 MG Suppository PR PRN (20:03)
[2024-04-09] MEDS ORDERED: Vancomycin 1 GM in Premix 1 BAG IVPB SCH (21:00)
[2024-04-09] MEDS: Lorazepam 2 MG/ML VIAL SLOW IVP PRN (23:27)
[2024-04-10 06:25] LABS: Anion Gap 9 mmol/L (10-20); BUN (Urea Nitrogen) 32 mg/dL (8.4-25.7); Calc. Creatinine Clearance 78 mL/min (70-130); Calcium 7.3 mg/dL (7.8-10.44); Carbon Dioxide 19 mmol/L (23-31); Chloride 115 mmol/L (98-107); Estimated GFR 91; Glucose 118 mg/dL (83-110); Potassium 3.5 mmol/L (3.5-5.1); Sodium 139 mmol/L (136-145)
[2024-04-10 06:39] LABS: Hemoglobin 8.3 g/dL (14.0-18.0); Mean Corpuscular HGB CONC 34.6 g/dL (32.0-36.0); Mean Corpuscular Hemoglobin 31.9 pg (27.0-31.0); Mean Corpuscular Volume 92.3 fL (78.0-98.0); Mean Platelet Volume 12.4 fL (7.4-10.4); Platelet Count 237 10x3/uL (130-400); RBC Distribution Width 20.8 % (11.5-14.5)
[2024-04-10 07:41] LABS: Anisocytosis SLIGHT = 6-15 cells HPF (0-5); Band 7 % (5-11); Eosinophils 1 % (0-10); Large Platelets 6.9 % (0-5); Macrocytosis SLIGHT = 6-15 cells HPF (0-5); Monocytes 5 % (0-10); Neutrophil 87 % (42-75); Nucleated RBC (Manual Ct) 4 % (0); Platelet Adequacy Comment Platelets Normal; Poikilocytosis MODERATE=16-30 cells HPF (0-5); Polychromasia SLIGHT = 2-3 cells HPF (0-2); Schistocytes SLIGHT = 2-5 cells HPF (0-1); Target Cells SLIGHT = 2-5 cells HPF (0-1)
[2024-04-10] MEDS: Micafungin 100 MG in Sodium Chloride 0.9% 100 ML IVPB SCH (07:48)
[2024-04-10 09:37] LABS: Phosphorus 3.6 mg/dL (2.3-4.7)
[2024-04-10] MEDS: Magnesium 2 GM/50 ML(in water) 2 GM in Premix 1 BAG IVPB SCH (11:50)
[2024-04-10] MEDS: Potassium Phosphate 30 MMOL in Sodium Chloride 0.9% 250 ML 250 ML IVPB SCH (12:54)
[2024-04-11 05:57] LABS: Hematocrit 24.8 % (42.0-52.0); Hemoglobin 8.4 g/dL (14.0-18.0); Mean Corpuscular HGB CONC 33.9 g/dL (32.0-36.0); Mean Corpuscular Hemoglobin 31.6 pg (27.0-31.0); Mean Corpuscular Volume 93.2 fL (78.0-98.0); Mean Platelet Volume 13.2 fL (7.4-10.4); Platelet Count 268 10x3/uL (130-400); RBC Distribution Width 20.1 % (11.5-14.5); Red Blood Cell (RBC) Count 2.66 mill/uL (4.70-6.10)
[2024-04-11 06:03] LABS: Anion Gap 10 mmol/L (10-20); BUN (Urea Nitrogen) 30 mg/dL (8.4-25.7); Calc. Creatinine Clearance 82 mL/min (70-130); Calcium 7.4 mg/dL (7.8-10.44); Carbon Dioxide 24 mmol/L (23-31); Chloride 109 mmol/L (98-107); Estimated GFR 94; Glucose 111 mg/dL (83-110); Magnesium 2.1 mg/dL (1.6-2.6); Potassium 3.6 mmol/L (3.5-5.1); Sodium 139 mmol/L (136-145)
[2024-04-11 06:05] LABS: Phosphorus 3.7 mg/dL (2.3-4.7)
[2024-04-12 04:50] LABS: Phosphorus 3.5 mg/dL (2.3-4.7)
[2024-04-12 05:01] LABS: Anion Gap 8 mmol/L (10-20); BUN (Urea Nitrogen) 30 mg/dL (8.4-25.7); Calc. Creatinine Clearance 87 mL/min (70-130); Calcium 7.6 mg/dL (7.8-10.44); Carbon Dioxide 26 mmol/L (23-31); Chloride 106 mmol/L (98-107); Estimated GFR 94; Glucose 138 mg/dL (83-110); Potassium 3.5 mmol/L (3.5-5.1); Sodium 136 mmol/L (136-145)
[2024-04-12 05:27] LABS: Hematocrit 23.9 % (42.0-52.0); Hemoglobin 8.1 g/dL (14.0-18.0); Mean Corpuscular HGB CONC 33.9 g/dL (32.0-36.0); Mean Corpuscular Hemoglobin 31.6 pg (27.0-31.0); Mean Corpuscular Volume 93.4 fL (78.0-98.0); Mean Platelet Volume 12.4 fL (7.4-10.4); Platelet Count 265 10x3/uL (130-400); RBC Distribution Width 19.7 % (11.5-14.5); Red Blood Cell (RBC) Count 2.56 mill/uL (4.70-6.10)
[2024-04-12] MEDS: Potassium Chloride 20 MEQ in Premix 1 BAG IVPB SCH (05:50)
[2024-04-12 06:28] LABS: Anisocytosis MODERATE=16-30 cells HPF (0-5); Band 4 % (5-11); Lymphocytes 8 % (21-51); Macrocytosis MODERATE=16-30 cells HPF (0-5); Monocytes 6 % (0-10); Neutrophil 82 % (42-75); Nucleated RBC (Manual Ct) 1 % (0); Ovalocytes SLIGHT = 2-5 cells HPF (0-1); Platelet Adequacy Comment Platelets Normal; Polychromasia SLIGHT = 2-3 cells HPF (0-2); Target Cells SLIGHT = 2-5 cells HPF (0-1)
[2024-04-12] MEDS: Magnesium 2 GM/50 ML(in water) 2 GM in Premix 1 BAG IVPB SCH (08:19)
[2024-04-12] MEDS: Acetaminophen 650 MG/20.3 ML UDCUP PER TUBE PRN (15:47)
[2024-04-13 05:14] LABS: #Basophils 0.09 10x3/uL (0.0-0.2); %Basophils 0.4 % (0.0-1.0); %Eosinophils 1.2 % (0.0-10.0); %Lymphocytes 7.3 % (21.0-51.0); %Monocytes 10.5 % (0.0-10.0); %Neutrophils 79.4 % (42.0-75.0); Hematocrit 24.8 % (42.0-52.0); Hemoglobin 8.5 g/dL (14.0-18.0); Mean Corpuscular HGB CONC 34.3 g/dL (32.0-36.0); Mean Corpuscular Hemoglobin 30.6 pg (27.0-31.0); Mean Corpuscular Volume 89.2 fL (78.0-98.0); Mean Platelet Volume 12.6 fL (7.4-10.4); Platelet Count 290 10x3/uL (130-400); RBC Distribution Width 19.5 % (11.5-14.5); Red Blood Cell (RBC) Count 2.78 mill/uL (4.70-6.10)
[2024-04-13 05:46] LABS: Anion Gap 11 mmol/L (10-20); BUN (Urea Nitrogen) 29 mg/dL (8.4-25.7); Calc. Creatinine Clearance 77 mL/min (70-130); Calcium 7.4 mg/dL (7.8-10.44); Carbon Dioxide 24 mmol/L (23-31); Chloride 106 mmol/L (98-107); Estimated GFR 92; Glucose 90 mg/dL (83-110); Potassium 3.7 mmol/L (3.5-5.1); Sodium 137 mmol/L (136-145)
[2024-04-13] MEDS: Amiodarone 200 MG TAB PO SCH (08:54)
[2024-04-13] MEDS: Amiodarone 200 MG TAB PER TUBE SCH (09:23)
[2024-04-13] MEDS: Escitalopram Oxalate 10 mg Tablet PER TUBE SCH (09:23)
[2024-04-14 04:17] LABS: #Basophils 0.05 10x3/uL (0.0-0.2); %Basophils 0.3 % (0.0-1.0); %Eosinophils 1.2 % (0.0-10.0); %Lymphocytes 7.1 % (21.0-51.0); %Monocytes 9.1 % (0.0-10.0); %Neutrophils 81.4 % (42.0-75.0); Hematocrit 25.2 % (42.0-52.0); Hemoglobin 8.7 g/dL (14.0-18.0); Mean Corpuscular HGB CONC 34.5 g/dL (32.0-36.0); Mean Corpuscular Volume 92.6 fL (78.0-98.0); Mean Platelet Volume 12.2 fL (7.4-10.4); Platelet Count 311 10x3/uL (130-400); RBC Distribution Width 19.7 % (11.5-14.5); Red Blood Cell (RBC) Count 2.72 mill/uL (4.70-6.10)
[2024-04-14 04:46] LABS: Anion Gap 13 mmol/L (10-20); BUN (Urea Nitrogen) 24 mg/dL (8.4-25.7); Calc. Creatinine Clearance 80 mL/min (70-130); Calcium 7.7 mg/dL (7.8-10.44); Carbon Dioxide 26 mmol/L (23-31); Chloride 106 mmol/L (98-107); Estimated GFR 93; Glucose 83 mg/dL (83-110); Potassium 3.3 mmol/L (3.5-5.1); Sodium 142 mmol/L (136-145)
[2024-04-14] MEDS: Potassium Bicarbonate/Cit Ac 20 MEQ TAB PER TUBE SCH (06:38)
[2024-04-14 13:58] LABS: Potassium 3.8 mmol/L (3.5-5.1)
[2024-04-14] MEDS: Amiodarone 200 MG TAB PER TUBE SCH (21:41)
[2024-04-15 05:36] LABS: #Basophils 0.05 10x3/uL (0.0-0.2); %Basophils 0.3 % (0.0-1.0); %Eosinophils 2.2 % (0.0-10.0); %Lymphocytes 10.5 % (21.0-51.0); %Monocytes 9.5 % (0.0-10.0); %Neutrophils 76.8 % (42.0-75.0); Hematocrit 27.1 % (42.0-52.0); Hemoglobin 9.1 g/dL (14.0-18.0); Mean Corpuscular HGB CONC 33.6 g/dL (32.0-36.0); Mean Corpuscular Hemoglobin 31.5 pg (27.0-31.0); Mean Corpuscular Volume 93.8 fL (78.0-98.0); Mean Platelet Volume 12.9 fL (7.4-10.4); Platelet Count 323 10x3/uL (130-400); RBC Distribution Width 19.4 % (11.5-14.5); Red Blood Cell (RBC) Count 2.89 mill/uL (4.70-6.10)
[2024-04-15 06:55] LABS: Anion Gap 16 mmol/L (10-20); BUN (Urea Nitrogen) 24 mg/dL (8.4-25.7); Calc. Creatinine Clearance 70 mL/min (70-130); Carbon Dioxide 28 mmol/L (23-31); Chloride 103 mmol/L (98-107); Estimated GFR 91; Glucose 79 mg/dL (83-110); Potassium 3.8 mmol/L (3.5-5.1); Sodium 143 mmol/L (136-145)
[2024-04-15] MEDS ORDERED: Iopamidol-370 76% 500 ML MDV (1 ML CHARGE) ONE (10:50)
[2024-04-15] MEDS: Enoxaparin 40 MG (0.4 mL) SYRINGE SC SCH (14:41)
[2024-04-15] MEDS: D5 1/2 NS w/10 mEq KCl 1,000 ML/1,000 ML BAG IV SCH (23:16)
[2024-04-16 03:35] LABS: #Basophils 0.05 10x3/uL (0.0-0.2); %Basophils 0.3 % (0.0-1.0); %Eosinophils 1.3 % (0.0-10.0); %Lymphocytes 10.6 % (21.0-51.0); %Monocytes 9.2 % (0.0-10.0); Hematocrit 26.2 % (42.0-52.0); Mean Corpuscular HGB CONC 34.4 g/dL (32.0-36.0); Mean Corpuscular Hemoglobin 31.9 pg (27.0-31.0); Mean Corpuscular Volume 92.9 fL (78.0-98.0); Mean Platelet Volume 11.6 fL (7.4-10.4); Platelet Count 345 10x3/uL (130-400); RBC Distribution Width 19.1 % (11.5-14.5); Red Blood Cell (RBC) Count 2.82 mill/uL (4.70-6.10)
[2024-04-16 04:10] LABS: Anion Gap 12 mmol/L (10-20); BUN (Urea Nitrogen) 20 mg/dL (8.4-25.7); Calc. Creatinine Clearance 69 mL/min (70-130); Carbon Dioxide 29 mmol/L (23-31); Chloride 105 mmol/L (98-107); Estimated GFR 91; Glucose 88 mg/dL (83-110); Potassium 3.2 mmol/L (3.5-5.1); Sodium 143 mmol/L (136-145)
[2024-04-16] MEDS: Potassium Chloride 20 MEQ in Premix 1 BAG IVPB SCH (07:30)
[2024-04-16] MEDS ORDERED: Potassium Bicarbonate/Cit Ac 20 MEQ TAB PER TUBE SCH (08:00)
[2024-04-16] MEDS: Lidocaine 1% w/Epinephrine 1:100K 20 ML VIAL IJ SCH (11:00)
[2024-04-16] MEDS: fentaNYL 50 mcg/mL 1 mL Vial SLOW IVP SCH (15:28)
[2024-04-16 17:07] LABS: Anion Gap 13 mmol/L (10-20); BUN (Urea Nitrogen) 18 mg/dL (8.4-25.7); Calc. Creatinine Clearance 62 mL/min (70-130); Calcium 8.1 mg/dL (7.8-10.44); Carbon Dioxide 30 mmol/L (23-31); Chloride 105 mmol/L (98-107); Estimated GFR 88; Glucose 111 mg/dL (83-110); Magnesium 1.8 mg/dL (1.6-2.6); Phosphorus 2.8 mg/dL (2.3-4.7); Potassium 3.8 mmol/L (3.5-5.1); Sodium 144 mmol/L (136-145)
[2024-04-16] MEDS: Magnesium 2 GM/50 ML(in water) 2 GM in Premix 1 BAG IVPB SCH (20:28)
[2024-04-17 04:23] LABS: Phosphorus 2.9 mg/dL (2.3-4.7)
[2024-04-17 04:33] LABS: Anion Gap 11 mmol/L (10-20); BUN (Urea Nitrogen) 16 mg/dL (8.4-25.7); Calc. Creatinine Clearance 65 mL/min (70-130); Calcium 7.8 mg/dL (7.8-10.44); Carbon Dioxide 30 mmol/L (23-31); Chloride 106 mmol/L (98-107); Estimated GFR 90; Glucose 115 mg/dL (83-110); Magnesium 2.4 mg/dL (1.6-2.6); Potassium 2.9 mmol/L (3.5-5.1); Sodium 144 mmol/L (136-145)
[2024-04-17 04:43] LABS: Hematocrit 27.6 % (42.0-52.0); Hemoglobin 9.1 g/dL (14.0-18.0); Mean Corpuscular Hemoglobin 31.4 pg (27.0-31.0); Mean Corpuscular Volume 95.2 fL (78.0-98.0); Mean Platelet Volume 12.3 fL (7.4-10.4); Platelet Count 380 10x3/uL (130-400); RBC Distribution Width 19.7 % (11.5-14.5)
[2024-04-17 06:42] LABS: Anisocytosis SLIGHT = 6-15 cells HPF (0-5); Band 2 % (5-11); Eosinophils 3 % (0-10); Lymphocytes 7 % (21-51); Monocytes 10 % (0-10); Myelocyte 1 % (0-0); Neutrophil 78 % (42-75); Nucleated RBC (Manual Ct) 4 % (0); Platelet Adequacy Comment Platelets Normal; Polychromasia SLIGHT = 2-3 cells HPF (0-2); Smudge Cells 2.6 %; Target Cells SLIGHT = 2-5 cells HPF (0-1)
[2024-04-17] MEDS: Potassium Bicarbonate/Cit Ac 20 MEQ TAB PO SCH (07:29)
[2024-04-17 17:54] LABS: Potassium 3.9 mmol/L (3.5-5.1)
[2024-04-17] MEDS: Amiodarone 200 MG TAB PO SCH (22:00)
[2024-04-18 08:21] LABS: Anion Gap 10 mmol/L (10-20); BUN (Urea Nitrogen) 13 mg/dL (8.4-25.7); Calc. Creatinine Clearance 64 mL/min (70-130); Calcium 7.9 mg/dL (7.8-10.44); Carbon Dioxide 33 mmol/L (23-31); Chloride 104 mmol/L (98-107); Estimated GFR 90; Glucose 101 mg/dL (83-110); Sodium 144 mmol/L (136-145)
[2024-04-18 08:29] LABS: Hematocrit 27.5 % (42.0-52.0); Hemoglobin 8.9 g/dL (14.0-18.0); Mean Corpuscular HGB CONC 32.4 g/dL (32.0-36.0); Mean Corpuscular Hemoglobin 31.4 pg (27.0-31.0); Mean Corpuscular Volume 97.2 fL (78.0-98.0); Mean Platelet Volume 11.8 fL (7.4-10.4); Platelet Count 393 10x3/uL (130-400); RBC Distribution Width 20.3 % (11.5-14.5); Red Blood Cell (RBC) Count 2.83 mill/uL (4.70-6.10)
[2024-04-18] MEDS: Pantoprazole DR 40 MG TAB PO SCH (09:59)
[2024-04-18] MEDS: Amiodarone 200 MG TAB PO SCH (10:00)
[2024-04-18] MEDS: Potassium Chloride 20 MEQ TAB PO SCH ×2 (10:00→20:04)
[2024-04-18] MEDS: Escitalopram Oxalate 10 mg Tablet PO SCH (10:00)
[2024-04-18] MEDS: Acetaminophen 650 MG/20.3 ML UDCUP PO PRN (10:09)
[2024-04-18 10:39] LABS: Band 3 % (5-11); Eosinophils 4 % (0-10); Lymphocytes 5 % (21-51); Monocytes 7 % (0-10); Neutrophil 82 % (42-75); Nucleated RBC (Manual Ct) 2 % (0); Platelet Adequacy Comment Platelets Normal; Target Cells SLIGHT = 2-5 cells HPF (0-1)
[2024-04-18] MEDS: Potassium Chloride 20 MEQ in Premix 1 BAG IVPB SCH ×2 (11:13→20:12)
[2024-04-18 13:29] VITALS: BMI 22.6
[2024-04-18 18:42] LABS: Potassium 3.4 mmol/L (3.5-5.1)
[2024-04-19 04:36] LABS: Hematocrit 26.9 % (42.0-52.0); Hemoglobin 8.6 g/dL (14.0-18.0); Mean Corpuscular Hemoglobin 30.8 pg (27.0-31.0); Mean Corpuscular Volume 96.4 fL (78.0-98.0); Mean Platelet Volume 12.2 fL (7.4-10.4); Platelet Count 395 10x3/uL (130-400); RBC Distribution Width 20.9 % (11.5-14.5); Red Blood Cell (RBC) Count 2.79 mill/uL (4.70-6.10)
[2024-04-19 04:46] LABS: Anion Gap 10 mmol/L (10-20); BUN (Urea Nitrogen) 12 mg/dL (8.4-25.7); Calc. Creatinine Clearance 61 mL/min (70-130); Calcium 7.8 mg/dL (7.8-10.44); Carbon Dioxide 30 mmol/L (23-31); Chloride 105 mmol/L (98-107); Estimated GFR 88; Glucose 101 mg/dL (83-110); Potassium 3.9 mmol/L (3.5-5.1); Sodium 141 mmol/L (136-145)
[2024-04-19 05:01] LABS: Anisocytosis SLIGHT = 6-15 cells HPF (0-5); Eosinophils 3 % (0-10); Hypochromia SLIGHT = 6-15 cells HPF (0-5); Large Platelets 2.9 % (0-5); Lymphocytes 4 % (21-51); Monocytes 5 % (0-10); Neutrophil 87 % (42-75); Nucleated RBC (Manual Ct) 2 % (0); Platelet Adequacy Comment Platelets Normal; Polychromasia SLIGHT = 2-3 cells HPF (0-2); Target Cells SLIGHT = 2-5 cells HPF (0-1)
[2024-04-20 06:06] LABS: #Basophils 0.07 10x3/uL (0.0-0.2); %Basophils 0.5 % (0.0-1.0); %Eosinophils 2.6 % (0.0-10.0); %Lymphocytes 22.1 % (21.0-51.0); %Neutrophils 63.9 % (42.0-75.0); Hematocrit 28.8 % (42.0-52.0); Hemoglobin 9.4 g/dL (14.0-18.0); Mean Corpuscular HGB CONC 32.6 g/dL (32.0-36.0); Mean Corpuscular Hemoglobin 30.8 pg (27.0-31.0); Mean Corpuscular Volume 94.4 fL (78.0-98.0); Mean Platelet Volume 11.8 fL (7.4-10.4); Platelet Count 395 10x3/uL (130-400); RBC Distribution Width 21.1 % (11.5-14.5); Red Blood Cell (RBC) Count 3.05 mill/uL (4.70-6.10)
[2024-04-20 06:24] LABS: Anion Gap 10 mmol/L (10-20); BUN (Urea Nitrogen) 13 mg/dL (8.4-25.7); Calc. Creatinine Clearance 65 mL/min (70-130); Calcium 7.9 mg/dL (7.8-10.44); Carbon Dioxide 27 mmol/L (23-31); Chloride 104 mmol/L (98-107); Estimated GFR 89; Glucose 93 mg/dL (83-110); Potassium 3.6 mmol/L (3.5-5.1); Sodium 137 mmol/L (136-145)
[2024-04-21 06:51] LABS: #Basophils 0.03 10x3/uL (0.0-0.2); %Basophils 0.2 % (0.0-1.0); %Eosinophils 2.6 % (0.0-10.0); %Lymphocytes 25.8 % (21.0-51.0); %Monocytes 11.7 % (0.0-10.0); Hematocrit 27.2 % (42.0-52.0); Hemoglobin 8.9 g/dL (14.0-18.0); Mean Corpuscular HGB CONC 32.7 g/dL (32.0-36.0); Mean Corpuscular Hemoglobin 31.7 pg (27.0-31.0); Mean Corpuscular Volume 96.8 fL (78.0-98.0); Mean Platelet Volume 11.7 fL (7.4-10.4); Platelet Count 358 10x3/uL (130-400); RBC Distribution Width 21.1 % (11.5-14.5); Red Blood Cell (RBC) Count 2.81 mill/uL (4.70-6.10)
[2024-04-21 07:19] LABS: Anion Gap 10 mmol/L (10-20); BUN (Urea Nitrogen) 13 mg/dL (8.4-25.7); Calc. Creatinine Clearance 62 mL/min (70-130); Calcium 8.1 mg/dL (7.8-10.44); Carbon Dioxide 29 mmol/L (23-31); Chloride 108 mmol/L (98-107); Estimated GFR 88; Glucose 98 mg/dL (83-110); Potassium 2.9 mmol/L (3.5-5.1); Sodium 144 mmol/L (136-145)
[2024-04-21] MEDS: Potassium Chloride 20 MEQ TAB PO SCH (09:49)
[2024-04-22 06:27] LABS: Hematocrit 29.1 % (42.0-52.0); Hemoglobin 9.5 g/dL (14.0-18.0); Mean Corpuscular HGB CONC 32.6 g/dL (32.0-36.0); Mean Corpuscular Volume 95.1 fL (78.0-98.0); Mean Platelet Volume 11.7 fL (7.4-10.4); Platelet Count 373 10x3/uL (130-400); RBC Distribution Width 21.6 % (11.5-14.5); Red Blood Cell (RBC) Count 3.06 mill/uL (4.70-6.10)
[2024-04-22 06:28] LABS: Anion Gap 10 mmol/L (10-20); BUN (Urea Nitrogen) 13 mg/dL (8.4-25.7); Calc. Creatinine Clearance 66 mL/min (70-130); Calcium 8.1 mg/dL (7.8-10.44); Carbon Dioxide 29 mmol/L (23-31); Chloride 109 mmol/L (98-107); Estimated GFR 90; Glucose 95 mg/dL (83-110); Magnesium 1.8 mg/dL (1.6-2.6); Potassium 3.6 mmol/L (3.5-5.1); Sodium 144 mmol/L (136-145)
[2024-04-22 06:49] LABS: Anisocytosis SLIGHT = 6-15 cells HPF (0-5); Band 2 % (5-11); Eosinophils 2 % (0-10); Hypochromia SLIGHT = 6-15 cells HPF (0-5); Lymphocytes 12 % (21-51); Monocytes 3 % (0-10); Neutrophil 81 % (42-75); Platelet Adequacy Comment Platelets Normal; Polychromasia SLIGHT = 2-3 cells HPF (0-2)
[2024-04-22] MEDS: Magnesium 2 GM/50 ML(in water) 2 GM in Premix 1 BAG IVPB SCH (09:10)
[2024-04-22 11:45] VITALS: TEMP 97.5
[2024-04-22] MEDS: Ketorolac Tromethamine 30 MG (1 mL) VIAL IVP SCH (14:23)
[2024-04-22] MEDS: Meropenem 1 GM VIAL ONE (23:00)
[2024-04-23] MEDS: Levothyroxine Sodium 125 MCG TAB PO SCH (06:53)
[2024-04-23] MEDS: Meropenem 1 GM VIAL ONE (07:58)
[2024-04-23 08:45] VITALS: BP 123/75
[2024-04-23] MEDS: Aspirin 81 mg Enteric Coated Tablet PO SCH (09:06)
[2024-04-23] MEDS: pyridOXINE 50 MG (B6) TAB PO SCH (09:06)
[2024-04-23 09:26] VITALS: BMI 23.6
[2024-04-23] MEDS: Ketorolac Tromethamine 30 MG (1 mL) VIAL IVP SCH (09:57)
[2024-04-23] MEDS ORDERED: Ketorolac Tromethamine 30 MG (1 mL) VIAL IVP PRN (10:45)
== END 2024-04-23 14:56 | DRG 853 ==
LOC: CCU 22:13 → IMCU/EMU 03-31 19:07 → CCU 04-01 14:25 → SURG B 04-19 12:47
PROVIDERS: ADMIT Student in an Organized Health Care Education/Training Program; ATTEND Internal Medicine
PROC: 0W9G0ZZ Drainage of Peritoneal Cavity, Open Approach (ICD-10-PCS; principal; 2024-04-01)
PROC: 02HV33Z Insertion of Infusion Device into Superior Vena Cava, Percutaneous Approach (ICD-10-PCS; 2024-04-02)
PROC: B548ZZA Ultrasonography of Superior Vena Cava, Guidance (ICD-10-PCS; 2024-04-02)
PROC: 0DQ80ZZ Repair Small Intestine, Open Approach (ICD-10-PCS; 2024-04-06)
PROC: 0J980ZZ Drainage of Abdomen Subcutaneous Tissue and Fascia, Open Approach (ICD-10-PCS; 2024-04-16)
DX: A41.9 Sepsis, unspecified organism (principal); G93.41 Metabolic encephalopathy; J96.01 Acute respiratory failure with hypoxia; I50.23 Acute on chronic systolic (congestive) heart failure; K63.1 Perforation of intestine (nontraumatic); N17.0 Acute kidney failure with tubular necrosis; K65.9 Peritonitis, unspecified; L02.211 Cutaneous abscess of abdominal wall; E87.20 Acidosis, unspecified; K56.7 Ileus, unspecified; K80.42 Calculus of bile duct with acute cholecystitis without obstruction; D62 Acute posthemorrhagic anemia; I48.92 Unspecified atrial flutter; K91.89 Other postprocedural complications and disorders of digestive system; E03.9 Hypothyroidism, unspecified; I25.10 Atherosclerotic heart disease of native coronary artery without angina pectoris; N18.31 Chronic kidney disease, stage 3a; I25.5 Ischemic cardiomyopathy; E87.6 Hypokalemia; I48.0 Paroxysmal atrial fibrillation; Z95.1 Presence of aortocoronary bypass graft; Z90.89 Acquired absence of other organs; Z98.890 Other specified postprocedural states; Z51.5 Encounter for palliative care; R65.20 Severe sepsis without septic shock
CPT/HCPCS: 36415; 36416; 36430; 36569; 36600; 70450; 71045; 74018; 74176; 74177; 74250; 76937; 77001; 78226; 80048; 80053; 80061; 80202; 82805; 83605; 83735; 83880; 84100; 84134; 84145; 85025; 85027; 85060; 85610; 86850; 86900; 86901; 87040; 87070; 87077; 87081; 87107; 87205; 88307; 93005; 93010; 94002; 94003; 97139; A4314; A4649; A9537; C1751; C9113; J0282; J1100; J1160; J1450; J1644; J1650; J1815; J1885; J1940; J2060; J2185; J2248; J2250; J2405; J2543; J2704; J3010; J3370; J3475; J3480; J3490; J7050; J7070; P9016; P9045; P9047; Q9963; Q9967; Q9968